=== PATIENT | female | born 1930 | race Caucasian/White ===

== ENCOUNTER → 2016-11-19 | Outpatient (CLI) | payer MEDICARE ==
[~2016-11-19] MED LIST: ASPI-482 PO; HYDR25TA9 PO; IOHEXOL 180 MG/ML 10 ML VIAL. IT ONE; LEVO100T5 PO; LIDOCAINE 1% Multi-Dose 20 ML VIAL. ID ONE; OMEG1CAP38 PO
--- NOTE | 2016-11-19 12:23 | KCIC ---
PROCEDURE CT lumbar spine with contrast. HISTORY Low back pain and right leg pain. TECHNIQUE Axial images and coronal and sagittal re-formatted images are provided. Oblique axial images through selected interspaces were performed. Exam was performed post myelogram which will be reported separately. Patient was scanned supine. One or more of the following individualized dose reduction techniques were utilized for this exam: 1. Automated exposure control. 2. Adjustment of the mA and/or kV according to patient's size. 3. Use of iterative reconstruction technique. COMPARISON None provided. FINDINGS L1 transverse processes are nonunited. S shaped curvature of the lower thoracic and lumbar spine is apex to the right at T12 and to the left at L4. Anterolisthesis at L5-S1 measures 7 millimeters. L2 is subluxed to the right by 7 millimeters in relation to L3. Endplate sclerosis is noted, from L2-L3 through L4-L5 most notably. Vacuum discs are noted throughout the lower thoracic and lumbar spine. Narrowing of disc height is noted throughout, greatest on the right at L3-L4 and L4-L5. Decompression is noted at L4-L5 and L5-S1. Only partially included in the field of view, there is atheromatous disease in the abdominal aorta with mild aneurysm suspected. Degenerative findings by individual level are as follows: T11-T12: Disc bulge and facet hypertrophy are noted without canal stenosis. There is mild to moderate foraminal narrowing, greater on the left. T12-L1: Disc bulge is eccentric to the left. There is minimal facet hypertrophy. There is no canal stenosis, midline AP diameter of the thecal sac 15 millimeters. There is slight left lateral recess narrowing. There is mild to moderate left foraminal narrowing. L1-L2: Disc bulge and facet hypertrophy are noted with mild left foraminal narrowing. Midline AP diameter of the thecal sac is 15 millimeters. L2-L3: Disc osteophyte complex is noted, eccentric to the left. Facet hypertrophy is noted. There is lateral recess narrowing bilaterally, greater on the right. Midline AP diameter of the thecal sac is minimally narrowed down to 12-13 millimeters. Foraminal narrowing on the left is high-grade. It is mild on the right. L3-L4: Disc osteophyte complex and facet hypertrophy are noted. Osteophyte complex is eccentric to the right with large right lateral spur. Facet hypertrophy is greater on the right. There is severe right lateral recess narrowing, mild left lateral recess narrowing. Midline AP diameter of the thecal sac is 13 millimeters. There is mild left and moderate to severe right foraminal narrowing. L4-L5: Disc osteophyte complex and facet hypertrophy are noted. Prominent endplate spur is noted on the right in a far lateral position. There is bilateral lateral recess narrowing, no canal stenosis with midline AP diameter of the thecal sac 12 millimeters. Decompression is noted. Foraminal narrowing is high-grade bilaterally. L5-S1: There is an irregular disc osteophyte complex with left paracentral protruding spur. There is facet hypertrophy. There is no canal stenosis post decompression, midline AP diameter of the thecal sac 13 millimeters. There is left lateral recess narrowing with the left S1 nerve root displaced. There is high-grade bilateral foraminal narrowing with both L5 nerve roots compressed. IMPRESSION 1. There is degenerative scoliosis throughout the lower thoracic and lumbar spine. There is no high-grade canal stenosis although there are levels of lateral recess narrowing and foraminal narrowing, as described above. 2. Partially included is a suspected abdominal aortic aneurysm, consider ultrasound as the initial step for further evaluation if this has not been previously performed. Electronically signed by: Landry Francis MD (Nov 19, 2016 12:21:43)
--- NOTE | 2016-11-19 12:27 | KCIC ---
PROCEDURE Lumbar spine with flexion and extension. HISTORY Radiculopathy and chronic right leg pain TECHNIQUE Lumbosacral spine series with flexion and extension contains 5 images. COMPARISON None. FINDINGS S-shaped scoliosis apex to the right at T12 and to the left at L4 is noted. L2 is subluxed to the right in relation to L3 by at least a centimeter. Endplate sclerosis is greatest on the right from L2-L3 through L4-L5. No fracture is apparent. There is no dynamic instability with flexion or extension. Endplate degenerative changes and facet hypertrophy are better evaluated on subsequent CT. Patient had difficulty with positioning for the extension view. Abdominal aortic aneurysm is noted with atheromatous disease, measuring up to 3.5 centimeters AP. IMPRESSION No evidence of dynamic instability with flexion or extension. Patient had difficulty with positioning for extension view. Electronically signed by: Landry Francis MD (Nov 19, 2016 12:25:26)
--- NOTE | 2016-11-19 12:30 | KCIC ---
PROCEDURE Lumbar myelogram. HISTORY Radiculopathy and chronic right leg pain. TECHNIQUE The procedure, its risks and benefits, and potential complications were discussed with the patient. All questions were answered. Written consent to proceed was obtained. Timeout procedure was performed. The patient was prepped and draped in the usual manner. 1 percent lidocaine was administered locally. Using intermittent fluoroscopic guidance, a 22 gauge spinal needle was positioned intrathecally at the level ofL3 via a paraspinous approach. A small amount of clear CSF was aspirated. Fifteen milliliters of [id number] was injected intrathecally under intermittent fluoroscopic visualization. An image documenting needle position was stored. The needle was withdrawn. There were no immediate complications. Fluoroscopy time [id number]. Image count is 8. FINDINGS There is circumferential indentation of the contrast column at L3-L4 and L4-L5, mild. Left exiting nerve root appears displaced at L4-L5 and L5-S1. Right exiting nerve roots appear displaced at L3-L4 and L4-L5. Ventral extradural defects are noted throughout the lumbar spine. No dynamic instability with flexion or extension is apparent, patient had difficulty with positioning for extension view. IMPRESSION Lumbar myelogram without complication. Electronically signed by: Landry Francis MD (Nov 19, 2016 12:28:48)
== END | disposition home or self-care (01) ==
LOC: KCIC 09:17
PROVIDERS: ATTEND Neurological Surgery
DX: M54.16 Radiculopathy, lumbar region (principal); M79.604 Pain in right leg; M54.5 Low back pain
CPT/HCPCS: 72110; 72132; 72265